=== PATIENT | female | born 1970 | race Caucasian/White ===

== ENCOUNTER 2018-01-07 13:37 | Emergency (ER) | payer OTHER ==
[~2018-01-07] VITALS: Ht 147.3 cm; Wt 54.5 kg
[~2018-01-07 13:37] MED LIST: AMAN100C12 PO; FOLI1TAB15 PO; GABA300T PO; OMEP10 PO; PARO20TA24 PO; PROM25 PO; QUET300T2 GT
[2018-01-07] MEDS ORDERED: ONDANSETRON HCL 4 MG TABLET PO ONE (15:15)
[2018-01-07] MEDS ORDERED: KETOROLAC TROMETHAMINE 10 MG TABLET PO ONE (15:15)
[2018-01-07] MEDS ORDERED: METHOCARBAMOL 500 MG TABLET PO ONE (15:15)
[2018-01-07 15:57] VITALS: BP 135/77
== END 2018-01-07 16:00 | disposition home or self-care (01) ==
LOC: EMS 14:02
DX: M54.5 Low back pain (principal); G89.29 Other chronic pain; Z76.0 Encounter for issue of repeat prescription; Z88.5 Allergy status to narcotic agent; Z79.899 Other long term (current) drug therapy; Z79.891 Long term (current) use of opiate analgesic
CPT/HCPCS: 99284; Q0162

== ENCOUNTER 2018-09-12 10:56 | Emergency (ER) | payer OTHER ==
[~2018-09-12] VITALS: Ht 144.8 cm; Wt 56.8 kg
[2018-09-12] MEDS ORDERED: HYDR-4069 PO (11:14)
[2018-09-12] MEDS ORDERED: GABA-533 PO (11:14)
[2018-09-12] MEDS ORDERED: ZOLP5 PO (11:14)
[2018-09-12] MEDS ORDERED: BUSP10TA23 PO (11:14)
[2018-09-12] MEDS ORDERED: ESTR-95 PO (11:14)
[2018-09-12] MEDS ORDERED: BACL10TA PO (11:14)
[2018-09-12] MEDS ORDERED: LEVE500T53 PO (11:14)
[2018-09-12] MEDS ORDERED: LORA10TA7 PO (11:14)
[2018-09-12] MEDS ORDERED: LORATADINE 10 MG TABLET PO ONE (13:30)
[2018-09-12] MEDS ORDERED: BENZONATATE 100 MG CAPSULE PO ONE (13:30)
[2018-09-12] MEDS ORDERED: IBUPROFEN 600 MG TABLET PO ONE (13:30)
[2018-09-12 14:29] VITALS: BP 131/83
== END 2018-09-12 14:34 | disposition home or self-care (01) ==
LOC: EMS 11:03
DX: J02.8 Acute pharyngitis due to other specified organisms (principal); B97.89 Other viral agents as the cause of diseases classified elsewhere; R51 Headache; G89.29 Other chronic pain; M19.90 Unspecified osteoarthritis, unspecified site; Z88.5 Allergy status to narcotic agent
CPT/HCPCS: 87430